=== PATIENT | female | born 1965 | race Caucasian/White ===

== ENCOUNTER 2020-10-25 12:58 | Emergency (ER) | payer BC ==
[2020-10-25 20:51] LABS: SARS-CoV-2 PCR by NAA DETECTED (NotDetected)
== END 2020-10-25 13:16 | disposition home or self-care (01) ==
LOC: ERS 12:58
DX: U07.1 COVID-19 (principal); J45.909 Unspecified asthma, uncomplicated; I10 Essential (primary) hypertension
CPT/HCPCS: 87635; 99283; U0003; U0005

== ENCOUNTER 2021-12-11 08:42 | Emergency (ER) | payer BC ==
[2021-12-11] MEDS ORDERED: Morphine 4 MG/ML VIAL ONE (11:00)
[2021-12-11] MEDS ORDERED: Ondansetron PF 4 MG/2 ML Vial ONE (11:00)
[2021-12-11 11:10] LABS: #Eosinphils 0.2 thou/uL (0.0-0.7); #Monocytes 0.6 thou/uL (0.11-0.59); #Neutrophils 4.4 thou/uL (1.40-6.50); %Basophils 0.1 % (0.0-1.0); %Eosinophils 2.6 % (0.0-10.0); %Lymphocytes 15.9 % (21.0-51.0); %Monocytes 9.4 % (0.0-10.0); %Neutrophils 71.9 % (42.0-75.0); Hemoglobin 15.3 g/dL (12.0-16.0); Mean Corpuscular HGB CONC 34.1 g/dL (32.0-36.0); Mean Platelet Volume 7.3 fL (7.4-10.4); Platelet Count 159 thou/uL (130-400); RBC Distribution Width 11.7 % (11.5-14.5); Red Blood Cell (RBC) Count 4.38 mill/uL (4.20-5.40); White Blood Cell (WBC) Count 6.2 thou/uL (4.8-10.8)
[2021-12-11 11:14] LABS: BHCG - Serum Negative (NEGATIVE); Pregs Control Background? CLEAR/WHITE (CLR/WHITE); Pregs Control Bar Appear? YES (CONTROL BAR)
[2021-12-11] MEDS ORDERED: Iopamidol-370 76% 500 ML 1 ML ONE (11:28)
[2021-12-11] MEDS ORDERED: GASTROGRAFIN 30 ML BOT ONE (11:28)
[2021-12-11 11:32] LABS: ALT (SGPT) 31 U/L (8-55); AST (SGOT) 35 U/L (5-34); Albumin 4.6 g/dL (3.5-5.0); Alkaline Phosphatase 128 U/L (40-110); Anion Gap 14 mmol/L (10-20); BUN (Urea Nitrogen) 13 mg/dL (9.8-20.1); Bilirubin, Total 0.5 mg/dL (0.2-1.2); Calc. Creatinine Clearance 0 mL/min (70-130); Calcium 9.4 mg/dL (7.8-10.44); Carbon Dioxide 20 mmol/L (22-29); Chloride 104 mmol/L (98-107); Globulin 3.2 g/dL (2.4-3.5); Glucose 100 mg/dL (70-105); Lipase 16 U/L (8-78); Potassium 4.3 mmol/L (3.5-5.1); Protein, Total 7.8 g/dL (6.0-8.3); Sodium 134 mmol/L (136-145)
[2021-12-11 13:56] LABS: Bilirubin Negative (Negative); Blood, Urine Negative (Negative); Clarity Clear (Clear); Glucose, Urine (Dipstick) Normal (Negative); Ketone, Urine Negative (Negative); Leukocyte Negative Leu/uL (Negative); Nitrite Negative (Negative); Protein, Urine (Dipstick) Negative (Neg-Trace); Urobilinogen Normal mg/dL (Less than 2); pH, Urine 5.5 (5.0-9.0)
[2021-12-11 13:57] LABS: Specific Gravity, Urine Greater than 1.060 (1.002-1.036)
[2021-12-11] MEDS ORDERED: Metoclopramide HCl 10 MG/2 ML VIAL ONE (14:07)
[2021-12-11] MEDS ORDERED: Ketorolac Tromethamine 30 MG/ML VIAL ONE (14:07)
[2021-12-11] MEDS ORDERED: Magnesium 2 GM/50 ML BAG (IN WATER) ONE (14:07)
[2021-12-11] MEDS ORDERED: diphenhydrAMINE 50 MG/ML VIAL ONE (14:07)
== END 2021-12-11 15:10 | disposition home or self-care (01) ==
LOC: ERS 08:42
DX: R51.9 Headache, unspecified (principal); R10.9 Unspecified abdominal pain; I10 Essential (primary) hypertension; Z79.899 Other long term (current) drug therapy
CPT/HCPCS: 74177; 80053; 81003; 83690; 84703; 85025; 93005; 96365; 96375; J1200; J1885; J2270; J2405; J2765; J3475; Q9963; Q9967

== ENCOUNTER 2022-06-29 09:47 | Inpatient (IN) | payer BC ==
[2022-06-29 10:26] LABS: #Basophils 0.1 thou/uL (0.0-0.2); #Eosinphils 0.3 thou/uL (0.0-0.7); #Lymphocytes 1.6 thou/uL (1.20-3.40); #Monocytes 0.4 thou/uL (0.11-0.59); #Neutrophils 3.1 thou/uL (1.40-6.50); %Basophils 1.1 % (0.0-1.0); %Eosinophils 6.1 % (0.0-10.0); %Lymphocytes 29.5 % (21.0-51.0); %Monocytes 6.6 % (0.0-10.0); %Neutrophils 56.8 % (42.0-75.0); Hemoglobin 13.9 g/dL (12.0-16.0); Mean Corpuscular HGB CONC 32.9 g/dL (32.0-36.0); Mean Corpuscular Hemoglobin 34.2 pg (27.0-31.0); Mean Platelet Volume 7.8 fL (7.4-10.4); Platelet Count 184 thou/uL (130-400); RBC Distribution Width 12.2 % (11.5-14.5); Red Blood Cell (RBC) Count 4.07 mill/uL (4.20-5.40); White Blood Cell (WBC) Count 5.4 thou/uL (4.8-10.8)
[2022-06-29 10:48] LABS: ALT (SGPT) 31 U/L (8-55); AST (SGOT) 29 U/L (5-34); Albumin 4.2 g/dL (3.5-5.0); Alkaline Phosphatase 85 U/L (40-110); Anion Gap 15 mmol/L (10-20); BUN (Urea Nitrogen) 12 mg/dL (9.8-20.1); Bilirubin, Total 0.7 mg/dL (0.2-1.2); Calc. Creatinine Clearance 0 mL/min (70-130); Calcium 9.5 mg/dL (7.8-10.44); Carbon Dioxide 26 mmol/L (22-29); Chloride 100 mmol/L (98-107); Estimated GFR 90; Globulin 2.7 g/dL (2.4-3.5); Glucose 116 mg/dL (70-105); Lipase 12 U/L (8-78); Potassium 4.6 mmol/L (3.5-5.1); Protein, Total 6.9 g/dL (6.0-8.3); Sodium 136 mmol/L (136-145)
[2022-06-29 14:37] LABS: Troponin I Less than 0.010 ng/mL (< 0.028)
[2022-06-29] MEDS ORDERED: Aspirin Chewable 81 MG TAB ONE (14:59)
[2022-06-29] MEDS ORDERED: Nitroglycerin 0.4 MG TAB 1 EACH ONE ×2 (15:04→15:20)
[2022-06-29] MEDS ORDERED: Ondansetron ODT 4 MG TAB PO PRN (15:49)
[2022-06-29] MEDS ORDERED: Nitroglycerin 0.4 MG TAB (25 Tab Bottle) SL PRN (15:52)
[2022-06-29 17:13] VITALS: BMI 45.3
[2022-06-29 17:13] LABS: Troponin I Less than 0.010 ng/mL (< 0.028)
[2022-06-29] MEDS: Acetaminophen 325 MG TAB PO PRN (19:22)
[2022-06-29 20:32] LABS: Troponin I Less than 0.010 ng/mL (< 0.028)
[2022-06-29] MEDS: cloNIDine 0.2 MG TAB PO SCH (21:31)
[2022-06-29] MEDS: Pramipexole Di-HCl 0.125 MG TAB PO SCH (21:32)
[2022-06-29] MEDS: Nitroglycerin 2% Ointment 1 INCH/1 GM Packet TOP SCH (21:32)
[2022-06-29] MEDS: Metoprolol Tartrate 25 MG TAB PO SCH (21:33)
[2022-06-29] MEDS ORDERED: Zolpidem Tartrate 5 MG TAB PO SCH (22:30)
[2022-06-30] MEDS: Nitroglycerin 2% Ointment 1 INCH/1 GM Packet TOP SCH ×3 (05:51→21:11)
[2022-06-30] MEDS: Levothyroxine Sodium 75 MCG TAB PO SCH (05:51)
[2022-06-30] MEDS ORDERED: Regadenoson 0.4 MG/5 ML SYRINGE ONE (08:07)
[2022-06-30] MEDS: Amlodipine 10 MG TAB PO SCH (15:05)
[2022-06-30] MEDS: cloNIDine 0.2 MG TAB PO SCH ×2 (15:06→21:10)
[2022-06-30] MEDS: Enoxaparin Sodium 40 MG/0.4 ML SYRINGE SC SCH (15:06)
[2022-06-30] MEDS: Aspirin Chewable 81 MG TAB PO SCH (15:06)
[2022-06-30] MEDS: Hydrochlorothiazide 25 MG TAB PO SCH (15:07)
[2022-06-30] MEDS: Escitalopram Oxalate 10 mg Tablet PO SCH (15:07)
[2022-06-30] MEDS: Metoprolol Tartrate 25 MG TAB PO SCH ×2 (15:07→21:10)
[2022-06-30] MEDS: Modafinil 100 MG TAB PO SCH (15:08)
[2022-06-30] MEDS: Thiamine 100 MG TAB PO SCH (15:08)
[2022-06-30] MEDS: Pramipexole Di-HCl 0.125 MG TAB PO SCH ×3 (15:08→21:10)
[2022-06-30] MEDS: Lisinopril 10 MG TAB PO SCH (15:30)
[2022-06-30] MEDS ORDERED: Zolpidem Tartrate 5 MG TAB PO SCH (21:00)
[2022-07-01] MEDS: Acetaminophen 325 MG TAB PO PRN (02:46)
[2022-07-01] MEDS: Nitroglycerin 2% Ointment 1 INCH/1 GM Packet TOP SCH (05:53)
[2022-07-01] MEDS: Levothyroxine Sodium 75 MCG TAB PO SCH (06:25)
[2022-07-01 08:00] VITALS: BP 135/68; TEMP 98
[2022-07-01] MEDS: Amlodipine 10 MG TAB PO SCH (10:16)
[2022-07-01] MEDS: Aspirin Chewable 81 MG TAB PO SCH (10:16)
[2022-07-01] MEDS: cloNIDine 0.2 MG TAB PO SCH (10:16)
[2022-07-01] MEDS: Enoxaparin Sodium 40 MG/0.4 ML SYRINGE SC SCH (10:16)
[2022-07-01] MEDS: Metoprolol Tartrate 25 MG TAB PO SCH (10:17)
[2022-07-01] MEDS: Lisinopril 10 MG TAB PO SCH (10:17)
[2022-07-01] MEDS: Modafinil 100 MG TAB PO SCH (10:17)
[2022-07-01] MEDS: Hydrochlorothiazide 25 MG TAB PO SCH (10:17)
[2022-07-01] MEDS: Escitalopram Oxalate 10 mg Tablet PO SCH (10:17)
[2022-07-01] MEDS: Pramipexole Di-HCl 0.125 MG TAB PO SCH (10:18)
[2022-07-01] MEDS: Thiamine 100 MG TAB PO SCH (10:19)
== END 2022-07-01 12:52 | disposition home or self-care (01) | DRG 313 ==
LOC: ERS 09:47 → 2SW 15:52 → OBSVTOIN 06-30 15:30
PROVIDERS: ADMIT Internal Medicine; ATTEND Internal Medicine
DX: R07.89 Other chest pain (principal); Z68.42 Body mass index [BMI] 45.0-49.9, adult; Z20.822 Contact with and (suspected) exposure to COVID-19; I10 Essential (primary) hypertension; E03.9 Hypothyroidism, unspecified; K21.9 Gastro-esophageal reflux disease without esophagitis; E66.01 Morbid (severe) obesity due to excess calories; J45.20 Mild intermittent asthma, uncomplicated; Z90.49 Acquired absence of other specified parts of digestive tract; Z98.84 Bariatric surgery status; Z90.710 Acquired absence of both cervix and uterus; Z90.09 Acquired absence of other part of head and neck; Z98.890 Other specified postprocedural states; Z79.890 Hormone replacement therapy; Z79.899 Other long term (current) drug therapy
CPT/HCPCS: 36415; 71045; 78452; 80053; 83690; 84484; 85025; 85379; 93005; 93017; 94760; 96372; A9500; G0378; J1650; J2785; U0003; U0005

== ENCOUNTER 2022-08-30 08:11 | Outpatient (CLI) | payer BC | END 2022-08-30 08:12 | disposition home or self-care (01) | LOC: BICRAD 08:11 | PROVIDERS: ATTEND Internal Medicine Rheumatology | DX: M17.0 Bilateral primary osteoarthritis of knee (principal); M25.561 Pain in right knee; M25.562 Pain in left knee ==

== ENCOUNTER 2023-05-14 00:58 | Inpatient (IN) | payer BC ==
[2023-05-14] MEDS ORDERED: CEFAZOLIN 2 GM VIAL ONE ×2 (02:06→11:41)
[2023-05-14 02:23] LABS: #Eosinphils 0.6 thou/uL (0.0-0.7); #Monocytes 0.4 thou/uL (0.11-0.59); #Neutrophils 2.5 thou/uL (1.40-6.50); %Basophils 0.7 % (0.0-1.0); %Eosinophils 10.3 % (0.0-10.0); %Lymphocytes 37.8 % (21.0-51.0); %Monocytes 6.4 % (0.0-10.0); %Neutrophils 44.6 % (42.0-75.0); Hematocrit 30.3 % (36.0-47.0); Hemoglobin 10.3 g/dL (12.0-16.0); Mean Corpuscular Hemoglobin 34.3 pg (27.0-31.0); Platelet Count 168 10x3/uL (130-400); RBC Distribution Width 13.2 % (11.5-14.5); White Blood Cell (WBC) Count 5.6 10x3/uL (4.8-10.8)
[2023-05-14 02:53] LABS: ALT (SGPT) 9 U/L (8-55); AST (SGOT) 17 U/L (5-34); Albumin 3.8 g/dL (3.5-5.0); Alkaline Phosphatase 79 U/L (40-110); Anion Gap 12 mmol/L (10-20); BUN (Urea Nitrogen) 8 mg/dL (9.8-20.1); Bilirubin, Total 0.3 mg/dL (0.2-1.2); Calc. Creatinine Clearance 0 mL/min (70-130); Calcium 8.9 mg/dL (7.8-10.44); Carbon Dioxide 22 mmol/L (22-29); Chloride 107 mmol/L (98-107); Estimated GFR 100; Globulin 2.4 g/dL (2.4-3.5); Glucose 94 mg/dL (70-105); Potassium 3.1 mmol/L (3.5-5.1); Protein, Total 6.2 g/dL (6.0-8.3); Sodium 138 mmol/L (136-145)
[2023-05-14] MEDS ORDERED: Sodium Chloride 0.9% 1,000 ML IV SCH (03:15)
[2023-05-14 03:24] VITALS: BMI 42.4
[2023-05-14] MEDS: Morphine 2 MG/ML VIAL SLOW IVP PRN ×2 (04:22→07:49)
[2023-05-14] MEDS ORDERED: fentaNYL 50 mcg/mL 1 mL Vial ONE ×3 (09:44→14:50)
[2023-05-14] MEDS ORDERED: Acetaminophen 500 MG TAB ONE (10:10)
[2023-05-14] MEDS ORDERED: Vancomycin (BATCH) 1.5 GRAM/300 ML BAG ONE (11:41)
[2023-05-14] MEDS ORDERED: Sodium Chloride 0.9% 100 ML ONE (11:41)
[2023-05-14] MEDS ORDERED: Fentanyl 250 MCG/5 ML VIAL ONE (11:47)
[2023-05-14] MEDS ORDERED: Midazolam HCl 2 mg/2 ml Vial ONE (11:47)
[2023-05-14] MEDS ORDERED: Dexamethasone 20 MG/5 ML VIAL ONE (11:51)
[2023-05-14] MEDS ORDERED: PHENYLEPHRINE-NS 100 MCG/ML 10 ML SYRINGE ONE (11:51)
[2023-05-14] MEDS ORDERED: PROPOFOL 200 MG/20 ML VIAL ONE (11:51)
[2023-05-14] MEDS ORDERED: Lidocaine 1% PF 5 ML VIAL ONE (11:51)
[2023-05-14] MEDS ORDERED: Ondansetron PF 4 MG/2 ML Vial ONE (11:51)
[2023-05-14] MEDS ORDERED: Vancomycin 1 GM VIAL ONE (13:16)
[2023-05-14] MEDS ORDERED: Promethazine HCl 25 MG/ML VIAL IM PRN (14:25)
[2023-05-14] MEDS ORDERED: Ondansetron HCl/PF 4 MG/2 ML Vial IVP PRN (14:25)
[2023-05-14] MEDS ORDERED: Meperidine HCl/PF 25 MG/ML VIAL SLOW IVP PRN ×2 (14:25)
[2023-05-14] MEDS ORDERED: HYDROmorphone 2 MG/ML VIAL SLOW IVP PRN (14:25)
[2023-05-14] MEDS ORDERED: Ondansetron ODT 4 MG TAB PO PRN (14:46)
[2023-05-14] MEDS ORDERED: Acetaminophen/Codeine 30-300mg Tablet PO PRN (14:46)
[2023-05-14] MEDS ORDERED: HYDROmorphone 0.5 MG/0.5 ML SYRINGE ONE ×2 (15:02→15:15)
[2023-05-14] MEDS ORDERED: Ketorolac Tromethamine 30 MG/ML VIAL ONE (15:15)
[2023-05-14] MEDS: Ketorolac Tromethamine 30 MG/ML VIAL IVP SCH ×2 (15:16→23:26)
[2023-05-14] MEDS: Acetaminophen/Codeine 30-300mg Tablet PO PRN ×2 (15:35→21:08)
[2023-05-14] MEDS: Morphine 4 MG/ML VIAL SLOW IVP PRN (16:59)
[2023-05-14] MEDS: Pregabalin 75 MG CAP PO SCH (21:03)
[2023-05-14] MEDS: Sertraline 100 MG TAB PO SCH (21:03)
[2023-05-14] MEDS: cloNIDine 0.2 MG TAB PO SCH (21:04)
[2023-05-14] MEDS: Vancomycin 1.5 GRAM/300 ML BAG 1.5 GM in Premix Bag 1 BAG IVPB SCH (21:07)
[2023-05-14] MEDS: Pramipexole Di-HCl 0.125 MG TAB PO SCH (21:07)
[2023-05-14] MEDS: traZODone HCl 50 MG TAB PO SCH (21:07)
[2023-05-14] MEDS: CEFAZOLIN 2 GM in Sodium Chloride 0.9% 100 ML IVPB SCH (22:43)
[2023-05-15] MEDS: Acetaminophen/Codeine 30-300mg Tablet PO PRN ×5 (04:56→22:23)
[2023-05-15] MEDS: Ketorolac Tromethamine 30 MG/ML VIAL IVP SCH ×4 (05:00→23:25)
[2023-05-15] MEDS: CEFAZOLIN 2 GM in Sodium Chloride 0.9% 100 ML IVPB SCH ×2 (05:00→14:45)
[2023-05-15] MEDS: Levothyroxine Sodium 75 MCG TAB PO SCH (05:00)
[2023-05-15 08:48] LABS: #Eosinphils 0.4 thou/uL (0.0-0.7); #Monocytes 0.5 thou/uL (0.11-0.59); #Neutrophils 4.9 thou/uL (1.40-6.50); %Basophils 0.5 % (0.0-1.0); %Eosinophils 5.4 % (0.0-10.0); %Lymphocytes 25.3 % (21.0-51.0); %Monocytes 6.4 % (0.0-10.0); Hematocrit 26.9 % (36.0-47.0); Hemoglobin 9.1 g/dL (12.0-16.0); Mean Corpuscular HGB CONC 33.8 g/dL (32.0-36.0); Mean Corpuscular Hemoglobin 35.1 pg (27.0-31.0); Mean Corpuscular Volume 103.9 fl (78.0-98.0); Mean Platelet Volume 10.3 fL (7.4-10.4); Platelet Count 180 10x3/uL (130-400); RBC Distribution Width 13.5 % (11.5-14.5); Red Blood Cell (RBC) Count 2.59 mill/uL (4.20-5.40); White Blood Cell (WBC) Count 7.8 10x3/uL (4.8-10.8)
[2023-05-15] MEDS ORDERED: Amlodipine 10 MG TAB PO SCH (09:00)
[2023-05-15] MEDS: cloNIDine 0.2 MG TAB PO SCH ×2 (09:52→20:46)
[2023-05-15] MEDS: Losartan 25 MG TAB PO SCH (09:52)
[2023-05-15] MEDS: Hydrochlorothiazide 25 MG TAB PO SCH (09:53)
[2023-05-15] MEDS: Pramipexole Di-HCl 0.125 MG TAB PO SCH ×2 (09:53→20:48)
[2023-05-15] MEDS: Vancomycin 1.5 GRAM/300 ML BAG 1.5 GM in Premix Bag 1 BAG IVPB SCH (09:53)
[2023-05-15] MEDS: Sertraline 100 MG TAB PO SCH ×2 (09:53→20:46)
[2023-05-15] MEDS: Aspirin 81 mg Enteric Coated Tablet PO SCH ×2 (09:53→20:46)
[2023-05-15] MEDS: Cephalexin 250 MG CAP PO SCH ×3 (14:25→23:26)
[2023-05-15] MEDS: HYDROcodone/Acetaminophen 10/325 mg Tablet PO PRN (20:45)
[2023-05-15] MEDS: traZODone HCl 50 MG TAB PO SCH (20:46)
[2023-05-15] MEDS: Sulfameth/Trimethoprim DS 800-160mg TAB PO SCH (20:47)
[2023-05-15] MEDS: Pregabalin 75 MG CAP PO SCH (20:47)
[2023-05-16] MEDS: Acetaminophen/Codeine 30-300mg Tablet PO PRN (03:40)
[2023-05-16] MEDS: Ketorolac Tromethamine 30 MG/ML VIAL IVP SCH ×4 (05:23→23:26)
[2023-05-16] MEDS: Levothyroxine Sodium 75 MCG TAB PO SCH (05:23)
[2023-05-16] MEDS: Cephalexin 250 MG CAP PO SCH ×4 (05:23→23:26)
[2023-05-16] MEDS: Sulfameth/Trimethoprim DS 800-160mg TAB PO SCH ×2 (09:55→20:42)
[2023-05-16] MEDS: Pramipexole Di-HCl 0.125 MG TAB PO SCH ×2 (09:55→20:41)
[2023-05-16] MEDS: cloNIDine 0.2 MG TAB PO SCH ×2 (09:55→20:41)
[2023-05-16] MEDS: Sertraline 100 MG TAB PO SCH ×2 (09:55→20:43)
[2023-05-16] MEDS: Aspirin 81 mg Enteric Coated Tablet PO SCH ×2 (09:55→20:41)
[2023-05-16] MEDS: HYDROcodone/Acetaminophen 10/325 mg Tablet PO PRN ×3 (09:59→20:40)
[2023-05-16] MEDS: Hydrochlorothiazide 25 MG TAB PO SCH (10:01)
[2023-05-16] MEDS: Losartan 25 MG TAB PO SCH (10:01)
[2023-05-16] MEDS: Amlodipine 10 MG TAB PO SCH (10:01)
[2023-05-16] MEDS: Morphine 4 MG/ML VIAL SLOW IVP PRN (11:26)
[2023-05-16] MEDS ORDERED: fentaNYL 50 mcg/mL 1 mL Vial SLOW IVP SCH (11:45)
[2023-05-16] MEDS: traZODone HCl 50 MG TAB PO SCH (20:43)
[2023-05-16] MEDS: Pregabalin 75 MG CAP PO SCH (20:43)
[2023-05-17] MEDS: Acetaminophen/Codeine 30-300mg Tablet PO PRN ×3 (04:26→16:34)
[2023-05-17] MEDS: Ketorolac Tromethamine 30 MG/ML VIAL IVP SCH ×2 (05:44→12:13)
[2023-05-17] MEDS: Levothyroxine Sodium 75 MCG TAB PO SCH (05:45)
[2023-05-17] MEDS: Cephalexin 250 MG CAP PO SCH ×2 (05:45→12:13)
[2023-05-17] MEDS: Sulfameth/Trimethoprim DS 800-160mg TAB PO SCH (08:11)
[2023-05-17] MEDS: Pramipexole Di-HCl 0.125 MG TAB PO SCH (08:11)
[2023-05-17] MEDS: HYDROcodone/Acetaminophen 10/325 mg Tablet PO PRN ×2 (08:12→14:16)
[2023-05-17] MEDS: Aspirin 81 mg Enteric Coated Tablet PO SCH (08:12)
[2023-05-17] MEDS: cloNIDine 0.2 MG TAB PO SCH (08:12)
[2023-05-17] MEDS: Sertraline 100 MG TAB PO SCH (08:12)
[2023-05-17] MEDS: Amlodipine 10 MG TAB PO SCH (08:13)
[2023-05-17] MEDS: Losartan 25 MG TAB PO SCH (08:14)
[2023-05-17] MEDS: Hydrochlorothiazide 25 MG TAB PO SCH (08:14)
[2023-05-17 14:05] VITALS: TEMP 97.5
[2023-05-17 17:18] VITALS: BP 128/85
== END 2023-05-17 17:22 | disposition home or self-care (01) | DRG 909 ==
LOC: ERS 00:58 → SURG A 01:42 → OBSVTOIN 05-16 15:30
PROVIDERS: ADMIT Orthopaedic Surgery; ATTEND Orthopaedic Surgery
PROC: 0J9L00Z Drainage of Right Upper Leg Subcutaneous Tissue and Fascia with Drainage Device, Open Approach (ICD-10-PCS; principal; 2023-05-14)
PROC: 0LQQ0ZZ Repair Right Knee Tendon, Open Approach (ICD-10-PCS; 2023-05-14)
PROC: 0SQC0ZZ Repair Right Knee Joint, Open Approach (ICD-10-PCS; 2023-05-14)
DX: T81.32XA Disruption of internal operation (surgical) wound, not elsewhere classified, initial encounter (principal); I10 Essential (primary) hypertension; E03.9 Hypothyroidism, unspecified; J45.909 Unspecified asthma, uncomplicated; F32.A Depression, unspecified; Z90.89 Acquired absence of other organs; Z90.710 Acquired absence of both cervix and uterus; Z96.651 Presence of right artificial knee joint; Z90.49 Acquired absence of other specified parts of digestive tract; Y83.8 Other surgical procedures as the cause of abnormal reaction of the patient, or of later complication, without mention of misadventure at the time of the procedure
CPT/HCPCS: 36415; 80053; 85025; 96366; 96375; 96376; G0378; J1100; J1170; J1885; J2250; J2270; J2272; J2405; J2704; J3010; J3370; J3490; J7050

== ENCOUNTER 2024-05-30 13:41 | Outpatient (CLI) | payer OTHER | END 2024-05-30 13:42 | disposition home or self-care (01) | LOC: CT 13:41 | PROVIDERS: ATTEND Orthopaedic Surgery | DX: M17.12 Unilateral primary osteoarthritis, left knee (principal); M25.761 Osteophyte, right knee; M25.461 Effusion, right knee; M19.072 Primary osteoarthritis, left ankle and foot ==

== ENCOUNTER 2024-07-13 11:32 | Emergency (ER) | payer BC ==
[2024-07-13 12:56] LABS: #Basophils 0.07 10x3/uL (0.0-0.2); %Basophils 0.8 % (0.0-1.0); %Eosinophils 11.8 % (0.0-10.0); %Lymphocytes 24.3 % (21.0-51.0); %Monocytes 7.4 % (0.0-10.0); %Neutrophils 55.5 % (42.0-75.0); Hematocrit 38.1 % (36.0-47.0); Hemoglobin 12.9 g/dL (12.0-16.0); Mean Corpuscular HGB CONC 33.9 g/dL (32.0-36.0); Mean Corpuscular Hemoglobin 33.9 pg (27.0-31.0); Mean Corpuscular Volume 100.3 fL (78.0-98.0); Mean Platelet Volume 10.6 fL (7.4-10.4); Platelet Count 222 10x3/uL (130-400); RBC Distribution Width 12.6 % (11.5-14.5)
[2024-07-13 13:05] LABS: ALT (SGPT) 18 U/L (8-55); AST (SGOT) 29 U/L (5-34); Albumin 3.9 g/dL (3.5-5.0); Alkaline Phosphatase 99 U/L (40-110); Anion Gap 11 mmol/L (10-20); BUN (Urea Nitrogen) 18 mg/dL (9.8-20.1); Bilirubin, Total 0.5 mg/dL (0.2-1.2); Calc. Creatinine Clearance 0 mL/min (70-130); Calcium 9.2 mg/dL (7.8-10.44); Carbon Dioxide 26 mmol/L (22-29); Chloride 107 mmol/L (98-107); Estimated GFR 75; Globulin 3.2 g/dL (2.4-3.5); Glucose 121 mg/dL (70-105); Potassium 4.2 mmol/L (3.5-5.1); Protein, Total 7.1 g/dL (6.0-8.3); Sodium 140 mmol/L (136-145)
[2024-07-13 13:18] LABS: Troponin I Less than 0.010 ng/mL (< 0.028)
[2024-07-13 13:52] LABS: Bacteria/HPF None Seen HPF (None Seen); Bilirubin Negative (Negative); Blood, Urine Negative (Negative); CAUTI Indications for Culture Dysuria,urgency,freq; Clarity Clear (Clear); Glucose, Urine (Dipstick) Normal (Negative); Ketone, Urine Negative (Negative); Leukocyte Negative Leu/uL (Negative); Nitrite Negative (Negative); Protein, Urine (Dipstick) Negative (Neg-Trace); RBC/HPF 0-3 HPF (0-3); Specific Gravity, Urine 1.017 (1.002-1.036); Squamous Epithelial 0-3 HPF (0-3); Urobilinogen Normal mg/dL (Less than 2); WBC/HPF None Seen HPF (0-3)
[2024-07-13 13:54] LABS: Urine Culture Reflex No No
== END 2024-07-13 15:10 | disposition home or self-care (01) ==
LOC: ERS 11:32
DX: I10 Essential (primary) hypertension (principal); F41.9 Anxiety disorder, unspecified; E03.9 Hypothyroidism, unspecified; Z79.899 Other long term (current) drug therapy
CPT/HCPCS: 71045; 80053; 81001; 83880; 84484; 85025; 93005